=== PATIENT | female | born 1985 | race Caucasian/White ===

== ENCOUNTER → 2020-12-25 | Outpatient (CLI) | payer OTHER | LOC: M.RAD 08:57 | PROVIDERS: ATTEND Obstetrics & Gynecology Gynecology | DX: Z12.31 Encounter for screening mammogram for malignant neoplasm of breast (principal) ==

== ENCOUNTER → 2021-02-26 | Outpatient (CLI) | payer OTHER | LOC: M.CT 08:00 | PROVIDERS: ATTEND Nurse Practitioner | DX: Z13.6 Encounter for screening for cardiovascular disorders (principal); I25.10 Atherosclerotic heart disease of native coronary artery without angina pectoris ==